=== PATIENT | female | born 1995 | race Caucasian/White ===

== ENCOUNTER 2022-03-13 17:31 | Emergency (ER) | payer OTHER ==
[~2022-03-13] VITALS: Ht 172.7 cm; Wt 77.1 kg
[2022-03-13 17:50] VITALS: BP_SYST 136
--- NOTE | 2022-03-13 18:55 | NUR ---
PT DC'D BY DR CALIXTO, PT NOT IN LOBBY AREA.
== END 2022-03-13 18:55 | disposition home or self-care (01) ==
LOC: SED 17:31
DX: N63.0 Unspecified lump in unspecified breast (principal); Z79.899 Other long term (current) drug therapy
CPT/HCPCS: 81025; 99282